=== PATIENT | female | born 1995 ===

== ENCOUNTER → 2019-09-23 | Outpatient (REF) | payer BC ==
[2019-09-23 16:49] LABS: APPEARANCE, URINE MANUAL CLOUDY (CLEAR); BILIRUBIN, URINE MANUAL OBSCURED (NEGATIVE); COLOR, URINE MANUAL AMBER (YELLOW); GLUCOSE, URINE (UA) MANUAL OBSCURED mg/dL (NEGATIVE); KETONE, URINE MANUAL OBSCURED mg/dL (NEGATIVE); NITRITE, URINE MANUAL OBSCURED (NEGATIVE); PH,URINE MAN OBSCURED UNITS (5.0 - 7.0); PROTEIN, URINE MANUAL OBSCURED mg/dL (NEGATIVE); UROBILINOGEN, URINE MANUAL OBSCURED mg/dl (NORMAL)
[2019-09-23 16:50] LABS: BLOOD URINE MANUAL OBSCURED (NEGATIVE); LEUKOCYTE ESTERASE, URINE MAN OBSCURED (NEGATIVE)
[2019-09-23 17:03] LABS: RBC, URINE 40-50 /hpf (0-3); WBC, URINE TNTC /hpf (0-3)
[2019-09-23 17:04] LABS: BACTERIA, URINE LARGE AMOUNT; HYALINE CAST, URINE NONE SEEN /lpf (0-1); SQUAMOUS EPITHELIAL CELL URINE SMALL AMOUNT /hpf (SMALL AMT)
== END ==
LOC: M LAB REF 16:33
PROVIDERS: ATTEND Nurse Practitioner Women's Health
DX: N39.0 Urinary tract infection, site not specified (principal)